=== PATIENT | male | born 1995 | race Two or more races ===

== ENCOUNTER 2018-04-05 20:07 | Emergency (ER) | payer OTHER ==
[~2018-04-05] VITALS: Ht 182.9 cm; Wt 135.0 kg
[2018-04-05 20:30] VITALS: Ht 182.9 cm; Wt 135.0 kg
[2018-04-05 21:19] VITALS: BP 120/90
== END 2018-04-05 21:19 | disposition home or self-care (01) ==
LOC: ED 20:07
DX: F12.10 Cannabis abuse, uncomplicated (principal)

== ENCOUNTER 2020-12-08 07:41 | Emergency (ER) | payer BC ==
[~2020-12-08] VITALS: Ht 185.4 cm; Wt 116.6 kg
[2020-12-08 07:57] VITALS: Ht 185.4 cm; Wt 116.6 kg
[2020-12-08 09:11] LABS: BASOPHIL % 0.8 % (0.2-1.5); PLATELET COUNT 292 x10^3mcL (152-348); RED CELL DISTRIBUTION WIDTH 13.4 % (12.1-16.2)
[2020-12-08 09:38] LABS: CALCIUM 8.7 mg/dL (8.5-10.1); CARBON DIOXIDE 26.6 mmol/L (21-32); CHLORIDE SERUM 108 mmol/L (98-107); CREATININE SERUM 0.9 mg/dL (0.7-1.3); GFR1 > 60 mL/min; GLUCOSE SERUM 84 mg/dL (74-106); POTASSIUM SERUM 4.3 mmol/L (3.5-5.1); SODIUM SERUM 143 mmol/L (136-145)
[2020-12-08 11:10] VITALS: BP 127/75
== END 2020-12-08 11:10 | disposition home or self-care (01) ==
LOC: ED 07:41
PROVIDERS: Emergency Medicine
DX: R06.02 Shortness of breath (principal)
CPT/HCPCS: 83880; 85378